=== PATIENT | female | born 1960 | race Caucasian/White ===

== ENCOUNTER 2020-10-19 16:06 | Inpatient (IN) | payer BC, OTHER ==
[~2020-10-19] VITALS: Ht 167.6 cm; Wt 108.9 kg
[~2020-10-19 16:06] MED LIST: AMOXICILLIN500 M1 PO
[2020-10-19 19:06] LABS: HEMOGLOBIN 13.7 gm/dl (12.3-15.3); RED BLOOD COUNT 4.81 M/UL (4.00-5.10); WHITE BLOOD COUNT 5.4 K/UL (4.5-11.0)
[2020-10-19 19:17] LABS: BUN/CREATININE RATIO 15 (0-10)
[2020-10-20] MEDS ORDERED: NIFEDIPINE ER60 M1 PO (13:40)
[2020-10-20] MEDS ORDERED: PLAVIX 75 MG TA75 MG PO (13:40)
[2020-10-20] MEDS ORDERED: GLUCOPHAGE 500500 MG PO (13:40)
[2020-10-20] MEDS ORDERED: ASPIRIN EC81 MG PO (13:41)
[2020-10-20] MEDS ORDERED: HYDROCHLOROTHIA25 MG PO (13:41)
[2020-10-20] MEDS ORDERED: LASIX40 MG PO (13:41)
[2020-10-20] MEDS ORDERED: COZAAR100 MG PO (13:42)
[2020-10-20] MEDS ORDERED: LIPITOR40 MG PO (13:42)
[2020-10-20] MEDS ORDERED: LOPRESSOR 25 MG25 MG PO (13:42)
[2020-10-20] MEDS ORDERED: KLOR-CON 1010 MEQ PO (13:42)
[2020-10-21 03:59] LABS: HEMOGLOBIN 12.3 gm/dl (12.3-15.3); RED BLOOD COUNT 4.44 M/UL (4.00-5.10); WHITE BLOOD COUNT 4.8 K/UL (4.5-11.0)
[2020-10-22 06:22] LABS: HEMOGLOBIN 12.7 gm/dl (12.3-15.3); RED BLOOD COUNT 4.54 M/UL (4.00-5.10)
[2020-10-22 06:35] LABS: WHITE BLOOD COUNT 7.8 K/UL (4.5-11.0)
[2020-10-23 03:20] LABS: HEMOGLOBIN 12.1 gm/dl (12.3-15.3); RED BLOOD COUNT 4.33 M/UL (4.00-5.10)
[2020-10-23] MEDS ORDERED: VITAMIN C 500500 MG PO (09:26)
[2020-10-23] MEDS ORDERED: PROVENTIL HFA6.7 GM INH (09:26)
[2020-10-23] MEDS ORDERED: CEFUROXIME500 MG PO (09:26)
== END 2020-10-23 17:58 | disposition home or self-care (01) | DRG 177 ==
LOC: ER1 16:06 → CDU 23:04 → M/S 23:04
PROVIDERS: Internal Medicine; Physician Assistant; ADMIT Internal Medicine
PROC: 8E0ZXY6 Isolation (ICD-10-PCS; principal; 2020-10-19)
PROC: XW033E5 Introduction of Remdesivir Anti-infective into Peripheral Vein, Percutaneous Approach, New Technology Group 5 (ICD-10-PCS; 2020-10-20)
DX: U07.1 COVID-19 (principal); J12.82 Pneumonia due to coronavirus disease 2019; J96.01 Acute respiratory failure with hypoxia; E11.9 Type 2 diabetes mellitus without complications; R00.1 Bradycardia, unspecified; I48.91 Unspecified atrial fibrillation; E78.5 Hyperlipidemia, unspecified; R79.89 Other specified abnormal findings of blood chemistry; I10 Essential (primary) hypertension; E87.6 Hypokalemia; I25.10 Atherosclerotic heart disease of native coronary artery without angina pectoris; Z95.5 Presence of coronary angioplasty implant and graft; Z85.42 Personal history of malignant neoplasm of other parts of uterus; Z90.710 Acquired absence of both cervix and uterus; Z98.51 Tubal ligation status; Z79.84 Long term (current) use of oral hypoglycemic drugs; Z79.02 Long term (current) use of antithrombotics/antiplatelets; Z79.82 Long term (current) use of aspirin; Z79.899 Other long term (current) drug therapy
CPT/HCPCS: 36415; 36600; 71045; 80048; 80053; 81001; 82550; 82553; 82803; 82962; 83605; 83874; 83880; 84484; 85025; 85379; 85610; 85652; 85730; 86140; 87040; 87086; 93005; 94640; 94760; 96365; 96366; 96367; 96372; 96375; 96376; 99285; J0456; J0696; J1100; J1650; J2405; J7030; Q9967

== ENCOUNTER 2020-10-27 11:35 | Emergency (ER) | payer BC, OTHER ==
[~2020-10-27] VITALS: Ht 167.6 cm; Wt 108.9 kg
[~2020-10-27 11:35] MED LIST changes: +ASPIRIN EC81 MG PO; +CEFUROXIME500 MG PO; +COZAAR100 MG PO; +GLUCOPHAGE 500500 MG PO; +HYDROCHLOROTHIA25 MG PO; +KLOR-CON 1010 MEQ PO; +LASIX40 MG PO; +LIPITOR40 MG PO; +LOPRESSOR 25 MG25 MG PO; +NIFEDIPINE ER60 M1 PO; +PLAVIX 75 MG TA75 MG PO; +PROVENTIL HFA6.7 GM INH; +VITAMIN C 500500 MG PO
[2020-10-27 12:51] LABS: RED BLOOD COUNT 4.63 M/UL (4.00-5.10); WHITE BLOOD COUNT 6.8 K/UL (4.5-11.0)
[2020-10-27 13:14] LABS: BUN/CREATININE RATIO 14 (0-10)
== END 2020-10-27 18:10 | disposition home or self-care (01) ==
LOC: ER1 11:35 → CDU 16:28
PROVIDERS: Physician Assistant
DX: R00.1 Bradycardia, unspecified (principal); U07.1 COVID-19; I25.10 Atherosclerotic heart disease of native coronary artery without angina pectoris; I48.0 Paroxysmal atrial fibrillation; E78.5 Hyperlipidemia, unspecified; E11.9 Type 2 diabetes mellitus without complications; E66.9 Obesity, unspecified; Z98.890 Other specified postprocedural states; Z79.84 Long term (current) use of oral hypoglycemic drugs; Z79.02 Long term (current) use of antithrombotics/antiplatelets; Z79.82 Long term (current) use of aspirin; Z79.899 Other long term (current) drug therapy; Z85.42 Personal history of malignant neoplasm of other parts of uterus
CPT/HCPCS: 71045; 80053; 82550; 82553; 83735; 83874; 84439; 84443; 84484; 85025; 93005; 99285; U0002

== ENCOUNTER → 2020-11-02 | Outpatient (CLI) | payer BC, OTHER | LOC: HEART 5 08:19 | DX: R00.1 Bradycardia, unspecified (principal) ==

== ENCOUNTER → 2022-02-09 | Outpatient (CLI) | payer BC | LOC: KOH-I 08:43 | DX: M25.562 Pain in left knee (principal); S83.242A Other tear of medial meniscus, current injury, left knee, initial encounter; M25.462 Effusion, left knee; X58.XXXA Exposure to other specified factors, initial encounter | CPT/HCPCS: 73721 ==